=== PATIENT | male | born 1965 | race Caucasian/White ===

== ENCOUNTER 2016-10-25 14:51 | Emergency (ER) | payer BC ==
[2016-10-25 15:23] VITALS: BP 125/78
--- NOTE | 2016-10-25 15:39 | UC ---
General HPI - HPI Summary HPI Summary: 51 y/o male c/o all over body aches, runny nose, post-nasal drip, fatigue, and upper airway cough x 2 days. - History of Current Complaint Chief Complaint: UCGeneralIllness Stated Complaint: CHEST/SINUS CONGESTION Time Seen by Provider: 10/25/16 15:25 Hx Obtained From: Patient Onset/Duration: Gradual Onset Onset Severity: Mild Current Severity: Severe Associated Signs & Symptoms: Positive: Cough, Diaphoresis, Fever, Headache, Weakness. Negative: Back Pain, Hemoptysis, Nausea, SOB, Vomiting, Wheezing - Allergy/Home Medications Allergies/Adverse Reactions: Allergies Allergy/AdvReac Type Severity Reaction Status Date / Time No Known Allergies Allergy Verified 10/25/16 15:23 Home Medications: Home Medications Xeklxyakrqbwg-[id number]-[id number] [Nyquil Severe Cold/Flu 5-6.25-10-325 mg/15Ml] 1 liq PO ONCE 10/25/16 [History Confirmed 10/25/16] PMH/Surg Hx/FS Hx/Imm Hx Previously Healthy: Yes Endocrine History Of: Denies: Diabetes Cardiovascular History Of: Denies: Cardiac Disorders Respiratory History Of: Denies: COPD GI/ History Of: Reports: Diverticulitis Psychological History Of: Denies: Anxiety - Surgical History Surgical History: Yes Surgery Procedure, Year, and Place: knee. hand. 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 Lives: With Family Alcohol Use: Rare Substance Use Type: None Smoking Status (MU): Never Smoked Tobacco Amount Used/How Often: JUST OCCASSIONAL When Did the Patient Quit Smoking/Using Tobacco: APPROX 30 YRS - Immunization History Most Recent Influenza Vaccination: none Review of Systems Constitutional: Fever Skin: Negative, Bruising Eyes: Negative ENT: Nasal Discharge Respiratory: Cough Cardiovascular: Negative Gastrointestinal: Negative Genitourinary: Negative Motor: Negative Neurovascular: Negative Musculoskeletal: Negative Neurological: Negative Psychological: Negative All Other Systems Reviewed And Are Negative: Yes Physical Exam Triage Information Reviewed: Yes Appearance: No Pain Distress, Ill-Appearing Vital Signs: Initial Vital Signs Temp 99.6 F 10/25/16 15:16 Pulse 81 10/25/16 15:16 Resp 16 10/25/16 15:16 BP 125/78 10/25/16 15:16 Pulse Ox 98 10/25/16 15:16 Vital Signs Reviewed: Yes Eye Exam: Normal Eyes: Positive: Conjunctiva Clear ENT: Positive: Hearing grossly normal, Pharynx normal, Nasal congestion, Nasal drainage, TMs normal Dental Exam: Normal Dental: Negative: Cervical Lymphadenopathy Neck exam: Normal Neck: Positive: Supple, Nontender, No Lymphadenopathy Respiratory: Positive: Chest non-tender, Lungs clear, Normal breath sounds, No respiratory distress, No accessory muscle use Cardiovascular: Positive: RRR, No Murmur, Pulses Normal Abdominal Exam: Normal Abdomen Description: Positive: Nontender, No Organomegaly, Soft Bowel Sounds: Positive: Present Musculoskeletal Exam: Normal Musculoskeletal: Positive: Strength Intact, ROM Intact, No Edema Neurological Exam: Normal Neurological: Positive: Alert Psychological Exam: Normal Skin Exam: Normal Course/Dx - Differential Dx - Multi-Symptom Provider Diagnoses: Influenza Discharge - Discharge Plan Condition: Stable Disposition: HOME Prescriptions: Guaifenesin-Codeine [Guaiatussin AC] 5 - 10 ml PO Q6H #120 ml MDD 40mL Oseltamivir Phosphate [Tamiflu] 75 mg PO BID #10 cap Patient Education Materials: Influenza (ED) Forms: *Work Release Referrals: Ar Waldrop DO [Primary Care Provider] - If Needed
== END 2016-10-25 16:15 | disposition home or self-care (01) ==
LOC: UCCORT 14:51
DX: J11.1 Influenza due to unidentified influenza virus with other respiratory manifestations (principal)
CPT/HCPCS: 87502; 99212; G0463

== ENCOUNTER 2018-07-03 08:49 | Day surgery (SDC) | payer BC ==
[~2018-07-03 08:49] MED LIST: Buffered Lidocaine 0.9% SYRIN* 5 ML/SYR SYRINGE INTRADERM ONE; Sodium Citrate/Citric Acid* 15 ML UDC PO ONE
[2018-07-03] MEDS ORDERED: Sodium Citrate/Citric Acid* 15 ML UDC ONE (09:07)
[2018-07-03] MEDS ORDERED: ceFAZolin 2 GM PREMIX in ORs 2 GM/50 ML BAG IVPB ONE (09:07)
[2018-07-03] MEDS ORDERED: Ondansetron INJ* 2 MG/ML VIAL IV PRN (09:32)
[2018-07-03] MEDS ORDERED: fentaNYL* 50 MCG/ML 2 ML VIAL (100 MCG VIAL) IV PRN (09:32)
[2018-07-03] MEDS ORDERED: Naloxone* 0.4 MG/ML 1 ML VIAL IV PRN (09:32)
[2018-07-03] MEDS ORDERED: Lidocaine 1% MPF wEPI 200,000* 30 ML SDV ONE (10:04)
[2018-07-03] MEDS ORDERED: ROPIVACAINE 5 MG/ML 30 ML BTL (0.5%) ONE (10:05)
[2018-07-03] MEDS ORDERED: fentaNYL* 50 MCG/ML 2 ML VIAL (100 MCG VIAL) ONE (10:38)
[2018-07-03] MEDS ORDERED: Lidocaine 2% PF * 5 ML VIAL ONE (10:39)
[2018-07-03] MEDS ORDERED: Ketorolac INJ* 30 MG/ML 1 ML VIAL ONE (10:39)
[2018-07-03] MEDS ORDERED: Propofol* 10 MG/ML 20 ML BTL IV PUSH ONE (10:39)
[2018-07-03 12:35] VITALS: BP 141/99
--- NOTE | 2018-07-03 17:34 | OP ---
DATE OF OPERATION: 07/03/18 [facility] DATE OF : 69 ATTENDING SURGEON: Linnette Modi MD LAW INSTRUCTOR: None available. ANESTHESIOLOGIST: Dr. Baker. ANESTHESIA: General. PRE-OP DIAGNOSIS: Medial meniscus tear of the left knee. POST-OP DIAGNOSES: Medial meniscus tear left foot component as well as lateral meniscus fraying and mild chondrosis of medial femoral condyle. OPERATIVE PROCEDURE: Left knee arthroscopy with partial lateral meniscectomy, partial medial meniscectomy, and chondroplasty of the medial femoral condyle. INDICATIONS: Cresencio Ho is a 53-year-old male who has had left knee catching, locking after a trip [place]. He had persistent pain as well as catching symptoms. He had pain with weightbearing. He has failed conservative management including injection, physical therapy, and antiinflammatories. He has elected to proceed with surgical treatment. Risks and benefits were discussed at length and included, but not limited to bleeding, infection, damage to nerves, vessels, surrounding structures, wound nonhealing, persistent pain, need for further surgery, scarring, stiffness, incomplete relief of symptoms and risks of anesthesia. COMPLICATIONS: None. ESTIMATED BLOOD LOSS: Minimal. IMPLANTS: None. DESCRIPTION OF PROCEDURE: The patient was greeted in the preoperative area by the attending surgeon. Correct extremity was marked and the consent was confirmed. The patient was brought back to the operating suite, where she was placed in a supine position on the operating table and then underwent general anesthesia under LMA intubation, after which a nonsterile tourniquet was placed high on the proximal thigh. The lateral post was positioned. The left leg was then prepped and draped in usual sterile fashion beginning with chlorhexidine soap, scrub, and alcohol wipe and a final prep with ChloraPrep. After appropriate surgical pause indicating site, side, procedure, and administration of antibiotics, the knee was intra-articularly injected with 1% lidocaine with epi. The anterolateral portal was made sharply with an 11-blade , the scope was introduced into the joint, joint was examined. There was synovitis anteriorly. The ligamentum was still attached. The ACL and PCL were intact. The patellofemoral joint had grade 0-1 changes. The medial lateral gutters were intact. The scope was brought into the medial Compartment. There was a small area of bubbling of the cartilage with grade 2 changes, but this is about 2 mm x 4 mm. The medial meniscus was intact, except posteriorly there was an unstable parrot-beak flap that was slipped under. The anterior medial portal was then made in outside-in fashion. The biters were used to remove the unstable piece and dislodge the foot fragment. The shaver was used to debride this back to stable area. This extended all the way to the root. Once this was done, the meniscus was probed and found to be stable. There were grade 0 to 1 changes of the tibial plateau, grade 1 to 2 changes of the medial femoral condyle and very mild osteoarthritis. The scope was then brought to the notch. ACL and PCL were intact. Knee was then placed in dzixed-as-sifn position. There were grade 0 and 1 changes of the plateau and grade 0 and 1 changes of the femoral condyle with no unstable flaps. The lateral meniscus was intact, but there was some mild fraying. The body of the meniscus was debrided back using a selene. The final images were obtained. The knee was thoroughly lavaged and removed of any loose debris. The wounds were copiously irrigated with sterile saline. The portals were closed with 3-0 nylon in interrupted fashion. The knee was injected with 0.25% ropivacaine. Sterile dressings were applied. He was awoken from anesthesia and transferred to the PACU in stable condition. POSTOPERATIVE PLAN: He will be weightbearing as tolerated, range of motion as tolerated. He will be discharged on pain medication. DVT prophylaxis was considered, but deferred due to no previous personal or family history. I will see the patient back in 10 to 14 days. [id number] #: [id number] [facility]ITALJúnior
== END 2018-07-03 12:36 | disposition home or self-care (01) ==
LOC: OREAST 08:49
PROVIDERS: ATTEND Orthopaedic Surgery
DX: S83.242A Other tear of medial meniscus, current injury, left knee, initial encounter (principal); S83.282A Other tear of lateral meniscus, current injury, left knee, initial encounter; X58.XXXA Exposure to other specified factors, initial encounter
CPT/HCPCS: 88304; A9270-GY; J0690; J1885; J2001; J2704; J2795; J3010